=== PATIENT | male | born 1995 | race Two or more races ===

== ENCOUNTER 2018-06-05 17:18 | Emergency (ER) | payer MEDICAID, OTHER ==
[~2018-06-05] VITALS: Ht 170.2 cm; Wt 80.0 kg
[2018-06-05] MEDS ORDERED: LIDOCAINE-MPF 2% ,5ML ONE (18:12)
[2018-06-05] MEDS ORDERED: HYDROcodone/APAP 5/325 TABLET ONE (18:14)
[2018-06-05] MEDS ORDERED: HYDROcodone/APAP 5/325 TABLET PO ONE (18:30)
[2018-06-05] MEDS ORDERED: LIDOCAINE 1%, 10ML INFIL ONE (18:30)
[2018-06-05 20:03] VITALS: BP 133/85
== END 2018-06-05 20:17 | disposition home or self-care (01) ==
LOC: ED 20:11
DX: S93.124A Dislocation of metatarsophalangeal joint of right lesser toe(s), initial encounter (principal); W18.30XA Fall on same level, unspecified, initial encounter; Y93.89 Activity, other specified; Y92.830 Public park as the place of occurrence of the external cause; Y99.8 Other external cause status
CPT/HCPCS: 28630; 99284